=== PATIENT | male | born 1970 | race Caucasian/White ===

== ENCOUNTER 2025-01-07 15:49 | Emergency (ER) | payer OTHER ==
[2025-01-07] MEDS ORDERED: Ibuprofen 600 MG Tab PO ONE (16:18)
[2025-01-07] MEDS: Ibuprofen 600 MG Tab PO ONE (17:04)
== END 2025-01-07 17:33 | disposition home or self-care (01) ==
LOC: JP.ED 15:49
DX: S42.001A Fracture of unspecified part of right clavicle, initial encounter for closed fracture (principal); W19.XXXA Unspecified fall, initial encounter
CPT/HCPCS: 73030; 99283; A9270; 99282